=== PATIENT | male | born 1960 | race Caucasian/White ===

== ENCOUNTER 2017-03-29 13:39 | Emergency (ER) | payer OTHER ==
[2017-03-29] MEDS: METHYLPREDNISOLONE 125 MG INJ IM (17:02)
== END 2017-03-29 17:43 | disposition home or self-care (01) ==
LOC: FTE 13:39
DX: M75.81 Other shoulder lesions, right shoulder (principal)
CPT/HCPCS: 73030; 73030-RT; 96372; 99284-25

== ENCOUNTER 2018-03-11 16:08 | Emergency (ER) | payer SELFPAY, OTHER | END 2018-03-11 19:44 | disposition left against medical advice (07) | LOC: E/R 16:08 | DX: Z53.21 Procedure and treatment not carried out due to patient leaving prior to being seen by health care provider (principal) ==

== ENCOUNTER 2018-07-13 10:47 | Emergency (ER) | payer OTHER | END 2018-07-13 13:18 | disposition home or self-care (01) | LOC: FTE 10:47 | DX: J02.9 Acute pharyngitis, unspecified (principal); K21.9 Gastro-esophageal reflux disease without esophagitis | CPT/HCPCS: 71046; 99283-25 ==